=== PATIENT | female | born 1955 | race Caucasian/White ===

== ENCOUNTER 2017-11-01 07:30 | Day surgery (SDC) | payer OTHER ==
[2017-11-01] MEDS ORDERED: MIDAZOLAM 1 MG/ML 2 ML INJ ×2 (10:55→10:56)
[2017-11-01] MEDS ORDERED: FENTAnyl 50 MCG/ML VIAL (11:18)
== END 2017-11-01 11:52 | disposition home or self-care (01) ==
LOC: GIL 07:30
DX: Z12.11 Encounter for screening for malignant neoplasm of colon (principal); K64.4 Residual hemorrhoidal skin tags; K64.8 Other hemorrhoids; I10 Essential (primary) hypertension
CPT/HCPCS: 45378